=== PATIENT | female | born 1935 | race Caucasian/White ===

== ENCOUNTER 2017-08-09 09:53 | Inpatient (IN) | payer MEDICARE, OTHER ==
[~2017-08-09] VITALS: Ht 157.5 cm; Wt 97.0 kg
[2017-08-09] MEDS ORDERED: ASPIRIN 81 MG TAB PO STA (10:01)
[2017-08-09] MEDS ORDERED: NITROGLYCERIN 2% 1 GM OINT PKT TD STA (10:01)
[2017-08-09] MEDS ORDERED: NITROGLYCERIN (SL) 0.4 MG TAB SL PRN (10:30)
[2017-08-09] MEDS ORDERED: FUROSEMIDE 40 MG INJ IV ONE (10:30)
[2017-08-09 10:39] LABS: BASOPHILS % 0.5 % (0.0-2.0); EOSINOPHILS # 0.2 10^3/ul (0.0-0.5); EOSINOPHILS % 3.8 % (0.0-7.0); HEMATOCRIT 32.1 % (37.0-47.0); LYMPHOCYTES # 0.8 10^3/ul (0.8-2.9); LYMPHOCYTES % 12.7 % (15.0-51.0); MEAN CORPUSCULAR HEMOGLOBIN 27.4 pg (29.0-33.0); MEAN CORPUSCULAR HGB CONC 31.2 g/dl (32.0-37.0); MEAN CORPUSCULAR VOLUME 87.9 fl (82.0-101.0); MEAN PLATELET VOLUME 12.1 fl (7.4-10.4); MONOCYTE # 0.2 10^3/ul (0.3-0.9); NEUTROPHIL # 4.7 10^3/ul (1.6-7.5); NEUTROPHILS % 78.5 % (39.0-77.0); PLATELET COUNT 156 10^3/UL (140-415); RED BLOOD COUNT 3.65 10^6/ul (4.20-5.40); RED CELL DISTRIBUTION WIDTH 13.1 % (11.5-14.5)
[2017-08-09] MEDS ORDERED: VALS80TA2 PO (10:44)
[2017-08-09] MEDS ORDERED: METO-335 PO (10:44)
[2017-08-09] MEDS ORDERED: FURO40TA4 PO (10:46)
[2017-08-09] MEDS ORDERED: METO-448 PO (10:46)
[2017-08-09] MEDS ORDERED: COMBIG5 BOTH EYES (10:47)
[2017-08-09] MEDS ORDERED: SERT50TA PO (10:48)
[2017-08-09] MEDS ORDERED: HYDR25TA6 PO (10:48)
[2017-08-09] MEDS ORDERED: LORA0.5T PO (10:49)
[2017-08-09] MEDS ORDERED: LATA2.5D2 BOTH EYES (10:49)
--- NOTE | 2017-08-09 10:53 | RADRPT ---
PROCEDURE: XR Chest. CLINICAL INDICATION: Chest pain TECHNIQUE: Single portable view of the chest was obtained COMPARISON: No priors for comparison FINDINGS: The trachea is midline. The cardiac silhouette and vascularity are prominent. There are bilateral pe rihilar and interstitial opacities. The costophrenic angles are sharp. IMPRESSION: 1. Cardiomegaly and mild central pulmonary congestion. Bilateral interstitial opacities, probably mi ld edema RPTAT: AAPP Physician Yue Date Time Electronically viewed and signed by Physician Yue on 08/09/2017 10:52 JL/
[2017-08-09 10:57] LABS: CALCIUM 9.1 mg/dl (8.4-10.2); CREATININE 2.07 mg/dl (0.44-1.00); POTASSIUM 5.7 mmol/L (3.5-5.1)
[2017-08-09 11:09] LABS: TROPONIN-I 0.037 ng/ml (0.00-0.12)
[2017-08-09] MEDS ORDERED: ACETAMINOPHEN 325 MG TAB PO PRN (13:00)
[2017-08-09] MEDS ORDERED: ONDANSETRON 4 MG INJ IV PRN (13:00)
--- NOTE | 2017-08-09 13:35 | ERD ---
ER Documentation Chief Complaint Chief Complaint BIB R102, SOB X 3 DAYS. O2 SAT 70'S ON RA UPON ARRIVAL. HPI She is an 82-year-old female with coronary disease, CHF, and hypertension who presents with shortness of breath. She has had shortness of breath for the past 3 days. She came from home. A [place] tassel maker was used. She was placed on CPAP by paramedics. Her blood pressure was elevated. She denies pain. The symptoms come and go. The patient's family thinks it is a heart issue. The patient was brought in by ambulance. The oxygen saturation was 70% . Patient's primary doctor is Dr. Calix. ROS All systems reviewed and are negative except as per history of present illness. Medications Home Meds Reported Medications Latanoprost (Latanoprost) 2.5 Ml Drops, 1 DROP BOTH EYES QHS, #1 BOTTLE 08/09/17 Lorazepam* (Lorazepam*) 0.5 Mg Tablet, 0.5 MG PO TID Y for ANXIETY, TAB 08/09/17 Sertraline Hcl* (Zoloft*) 50 Mg Tablet, 50 MG PO DAILY, #30 TAB 08/09/17 Hydrochlorothiazide* (Hydrochlorothiazide*) 25 Mg Tab, 25 MG PO DAILY, #30 TAB 08/09/17 Brimonidine/Timolol* (Combigan*) 5 Ml Drops, 1 DROP BOTH EYES BID, BOTTLE 08/09/17 Metoprolol Tartrate* (Lopressor*) 25 Mg Tab, 12.5 MG PO BID, #60 TAB 08/09/17 Furosemide* (Furosemide*) 40 Mg Tablet, 40 MG PO DAILY, TAB 08/09/17 Valsartan* (Diovan*) 80 Mg Tablet, 80 MG PO DAILY, TAB 08/09/17 Discontinued Reported Medications Metoprolol Succinate* (Toprol XL*) 25 Mg Tab.sr.24h, 25 MG PO DAILY, #30 TAB 08/09/17 Allergies Allergies: Coded Allergies: No Known Allergy (Unverified , 08/09/17) PMhx/Soc Positive for coronary disease and hypertension Medical and Surgical Hx: Unable to obtain Smoking Status: Unknown if ever smoked FmHx Family History: No diabetes Physical Exam Vitals Vital Signs Date Time Temp Pulse Resp B/P Pulse Ox O2 Delivery O2 Flow Rate FiO2 08/09/17 12:16 62 16 129/66 100 Room Air 08/09/17 11:30 61 100 50 08/09/17 10:00 81 100 100 08/09/17 09:55 97.4 60 28 159/88 98 Physical Exam Const: Distress Head: Atraumatic Eyes: Normal Conjunctiva ENT: Normal External Ears, Nose and Mouth. Neck: Full range of motion..~ No meningismus. Resp: Decreased breath sounds bilaterally Cardio: Regular rate and rhythm, no murmurs Abd: Soft, non tender, non distended. Normal bowel sounds Skin: No petechiae or rashes Back: No midline or flank tenderness Ext: No cyanosis, or edema Neur: Awake and alert Psych: Normal Mood and Affect Result Diagram: 08/09/17 1025 08/09/17 1025 Results 24 hrs Laboratory Tests Test 08/09/17 10:25 White Blood Count 6.010^3/ul Red Blood Count 3.6510^6/ul Hemoglobin 10.0g/dl Hematocrit 32.1% Mean Corpuscular Volume 87.9fl Mean Corpuscular Hemoglobin 27.4pg Mean Corpuscular Hemoglobin Concent 31.2g/dl Red Cell Distribution Width 13.1% Platelet Count 48408^3/UL Mean Platelet Volume 12.1fl Neutrophils % 78.5% Lymphocytes % 12.7% Monocytes % 4.0% Eosinophils % 3.8% Basophils % 0.5% Nucleated Red Blood Cells % 0.0/100WBC Neutrophils # 4.710^3/ul Lymphocytes # 0.810^3/ul Monocytes # 0.210^3/ul Eosinophils # 0.210^3/ul Basophils # 0.010^3/ul Nucleated Red Blood Cells # 0.010^3/ul Sodium Level 142mmol/L Potassium Level 5.7mmol/L Chloride Level 103mmol/L Carbon Dioxide Level 30mmol/L Anion Gap 15 Blood Urea Nitrogen 34mg/dl Creatinine 2.07mg/dl Glucose Level 129mg/dl Calcium Level 9.1mg/dl Troponin I 0.037ng/ml Current Medications Medications (Trade) Dose Ordered Sig/Jaylin Route PRN Reason Start Time Stop Time Status Last Admin Dose Admin Aspirin (Aspirin) 162 mg ONCE STAT PO 08/09/17 10:01 08/09/17 10:03 DC 08/09/17 10:44 Nitroglycerin (Nitroglycerin 2% Oint) 1 inch ONCE STAT TD 08/09/17 10:01 08/09/17 10:03 DC 08/09/17 10:44 Nitroglycerin (Nitroglycerin (Sl Tab) 0.4 Mg) 1 tab Q5M UP TO 3 DOSES PRN SL CHEST PAIN 08/09/17 10:30 Furosemide (Lasix) 40 mg ONCE ONCE IV 08/09/17 10:30 08/09/17 10:31 DC 08/09/17 10:44 Ondansetron HCl (Zofran Inj) 4 mg ER BRIDGE PRN IV NAUSEA AND/OR VOMITING 08/09/17 13:00 08/10/17 12:59 Acetaminophen (Tylenol Tab) 650 mg ER BRIDGE PRN PO MILD PAIN/FEVER 08/09/17 13:00 08/10/17 12:59 Procedures/MDM Chest x-ray shows pulmonary edema per radiology. EKG read by me: Rate/Rhythm: Regular rate and rhythm at a rate of 71 Intervals: Normal Impression: No evidence of ischemia or arrhythmia Patient is an 82-year-old female presents with shortness of breath. I believe she has acute congestive heart failure exacerbation with respiratory failure. The patient required BiPAP therapy upon arrival. She was given aspirin, nitroglycerin, and Lasix. She will be admitted to a telemetry bed under the care of Dr. Calix. She improved and was able to be weaned to a nasal cannula. I doubt pneumonia or pneumothorax. I doubt pulmonary embolism. The patient will be admitted to the care of Dr. Calix her primary doctor. Critical Care: Time: 35 minutes excluding all billable procedures. Treatments/Evaluations: Close monitoring and treatment of unstable vital signs, cardiorespiratory, and neurologic status, while maintaining tight balance of fluid, respiratory, and cardiac interventions. Departure Diagnosis: Primary Impression: Respiratory failure Chronicity: acute Respiratory failure complication: hypoxia Qualified Code : J96.01 - Acute respiratory failure with hypoxia Additional Impressions: Shortness of breath CHF (congestive heart failure) Congestive heart failure type: unspecified congestive heart failure type Congestive heart failure chronicity: acute Qualified Code: I50.9 - Acute congestive heart failure, unspecified congestive heart failure type Condition: CLAUDIA Caballero MD Aug 09, 2017 13:35
[2017-08-09 17:24] LABS: CK-MB 0.54 ng/ml (0.0-2.4); TROPONIN-I 0.053 ng/ml (0.00-0.12)
[2017-08-09 19:11] VITALS: PULSE 71
[2017-08-09 20:00] VITALS: PULSE 74
[2017-08-09 20:24] VITALS: Ht 157.5 cm; Wt 97.0 kg
[2017-08-09 20:26] VITALS: BP 114/57; RESP 18
[2017-08-09] MEDS: METOPROLOL 25 MG TAB PO SCH (21:30)
[2017-08-09] MEDS ORDERED: ACETAMINOPHEN 500 MG TAB PO PRN (21:30)
[2017-08-09] MEDS: AMLODIPINE 2.5 MG TAB PO SCH (21:30)
[2017-08-09] MEDS ORDERED: LORAZEPAM 0.5 MG TAB PO PRN (21:30)
[2017-08-09 21:31] LABS: MAGNESIUM 2.2 mg/dl (1.7-2.5)
[2017-08-09] MEDS: ENOXAPARIN 100 MG/ML SYG SC SCH (21:49)
--- NOTE | 2017-08-09 21:49 | HP ---
Date/Time of Note Date/Time of Note DATE: 08/09/17 TIME: 21:30 Assessment/Plan VTE Prophylaxis VTE Prophylaxis Intervention: ambulation, anti-embolic stocking Lines/Catheters IV Catheter Type (from Nrsg): Saline Lock Assessment/Plan Assessment/Plan 1.IHD angina r/o mi 2.Severe sob with sensation of suffocation with 02 sat 70"s- r/o pe- add d-dimer to the tests and venose Doppler. 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 Progressive worsening of shortness of breath for the past 3 days. Today she was suffocating literally and her daughter in law called to son who called to paramedics.They placed her on CPAP. Her blood pressure was 150-160 mm hg systolic. She is ahving pressure sensation of the left breast area with pressure sensation to the neck area too. The symptoms come and go. The oxygen saturation was registered 70% according to er note. She had a HX of coronary disease, CHF , and hypertension. ROS Subjective hx not possible: pt critical, pt critical status Constitutional: diaphoresis, disoriented, fatigue, nausea, poor po, weight change, No chills, No febrile, No improved, No no complaints, No other Eyes: visual change (left blindness with decreased vision to right eye. ), No discharge, No no complaints, No other, No pain, No redness ENT: congestion, sore throat, No bleeding, No discharge, No dysphagia, No no complaints, No other, No pain Cardiovascular: chest pain, lightheadedness, orthopenea, palpitations, paroxysmal nocturnal dyspnea (severe with the sensation of soffocation.), No edema, No no complaints, No other Gastrointestinal: constipation, decreased appetite, flatus, nausea, pain, passing stool, No blood, No diarrhea, No no complaints, No other, No vomiting Genitourinary: flank pain, No bleeding, No discharge, No dysuria, No hematuria, No no complaints, No other Musculoskeletal: back pain, bone/joint pain, neck pain, No no complaints, No other, No restricted range of motion, No swelling Skin: bruising, pruritis, No erythema, No laceration, No no complaints, No other, No rash, No skin lesions Neurologic: confusion, dizziness, headache, No focal-weakness, No no complaints, No other, No seizure, No syncope Endocrine: polyuria (after diuretics.) Lymphatic: No adenopathy, No lymphadema, No no complaints, No other, No tender nodes Psychological: anxiety, confusion, depression, No nl mood/affect, No no complaints, No other, No suicidal Immunologic: No immunodeficiency, No no complaints, No other, No pruritis, No rhinitis, No urticaria PMH/Family/Social Past Medical History Medical History: angina, congestive heart failure, coronary artery disease, diabetes, diverticulitis, GERD, high cholesterol, hypertension, urinary tract infection Past Surgical History Past Surgical Hx: endoscopy, other (Extrauterine with s/p right tubo-ovarian removal 30 years ago.) Social History Alcohol Use: none Smoking Status: Never smoker Drug Use: none Exam/Review of Systems Vital Signs Vitals Vital Signs Date Time Temp Pulse Resp B/P Pulse Ox O2 Delivery O2 Flow Rate FiO2 08/09/17 20:26 98.2 58 18 114/57 92 08/09/17 17:54 Nasal Cannula 2.0 08/09/17 11:30 50 Exam Constitutional: alert, distress, frail, oriented, well developed, No non-verbal, No other Psych: anxiety, depression, No confusion, No nl mood/affect, No no complaints, No other, No suicidal Head: atraumatic, normocephalic, No hematomas, No lacerations, No other Eyes: EOMI, PERRL (left pupil is smaller.), fundi, disc, nl lids, other ( left almost total blindness.), No icteric, No nl conjunctiva, No nl sclera ENMT: nl external ears & nose, nl lips & teeth (dentures.) Neck: bruits, jvd, nuchal rigidity, No masses, No non-tender, No other, No supple, No thyromegaly Respiratory: congested cough, diminished breath sounds, labored breathing, normal air movement, No clear to auscultation, No crackles/rales, No intercostal retraction, No other, No respirations, No tactile fremitus, No wheezing Cardiovascular: bruits, jugular venous distention (JVD), regular rate and rhythm, systolic murmur, No S3, No S4, No diastolic murmur, No edema, No gallop, No irregular rhythm, No murmurs/extra sounds, No nl pulses, No other, No rub Gastrointestinal: bowel sounds, non-tender, soft, surgical scars (lower abdomen.) Genitourinary - Female: CVA tenderness, No CMT, No nl adnexae, No nl external genitalia, No other, No uterus Musculoskeletal: joint tenderness, muscle tone, muscle weakness Extremities: normal pulses, No calf tenderness, No clubbing, No cyanosis, No edema, No other, No palpable cord, No pitting pedal edema, No tenderness Neurological: [employer] II-XII intact (decreased hearing.), nl mental status, nl speech, numbness Skin: No diaphoresis, No ecchymosis, No laceration, No nl turgor, No other, No puncture, No rash or lesions Lymph: No enlarged, No nl lymph nodes, No nontender, No other Labs Result Diagram: 08/09/17 1025 08/09/17 1025 Medications Medications Current Medications Pantoprazole (Protonix Tab) 40 mg DAILY@06 PO ; Start 08/10/17 at 06:00 Atorvastatin Calcium (Lipitor) 20 mg HS PO ; Start 08/10/17 at 21:00 Aspirin (Halfprin) 81 mg DAILY PO ; Start 08/10/17 at 09:00 Acetaminophen (Tylenol Tab) 500 mg Q6H PRN PO PAIN AND OR ELEVATED TEMP; Start 08/09/17 at 21:30 Lorazepam (Ativan) 0.5 mg Q6H PRN PO ANXIETY; Start 08/09/17 at 21:30 Metoprolol Tartrate (Lopressor) 12.5 mg BID PO ; Start 08/09/17 at 21:30 Amlodipine Besylate (Norvasc) 2.5 mg Q12 PO ; Start 08/09/17 at 21:30 Enoxaparin Sodium (Lovenox) 95 mg Q24H SC ; Start 08/09/17 at 21:30 DEWAYNE ADAIR MD Aug 09, 2017 21:40
[2017-08-09 22:00] LABS: IRON 53 ug/dl (35-150)
[2017-08-09 22:03] LABS: THYROID STIMULATING HORMONE 4.21 MIU/L (0.465-4.680)
[2017-08-09 22:09] LABS: TOTAL IRON BINDING CAPACITY 380 ug/dl (241-421)
[2017-08-09] MEDS ORDERED: NA POLYST SULFON 15 GM/60 ML BTL PO ONE (22:30)
[2017-08-09] MEDS: BRIMONIDINE 0.2%-TIMOLOL 0.5% 5ML OPH BOTH EYES SCH (23:02)
[2017-08-09] MEDS: LATANOPROST 0.005% 2.5 ML OPH BOTH EYES SCH (23:16)
[2017-08-10] VITALS (12 sets, daily range): BP systolic 93–133; BP diastolic 51–69; PULSE 61–82; RESP 16–20
[2017-08-10 00:17] LABS: D-DIMER 5441.39 ng/ml (<460)
--- NOTE | 2017-08-10 02:03 | RADRPT ---
PROCEDURE: Ultrasound examination of bilateral lower extremities veins with Doppler. CLINICAL INDICATION: Leg pain and swelling, hypoxia. TECHNIQUE: Multiple sonographic images of bilateral lower extremity venous systems were performed with mcmahan scale and color Doppler. COMPARISON: None. FINDINGS: Bilateral common femoral, superficial femoral and popliteal veins demonstrate normal color flow, wav eforms, compression and response to augmentation. There is no evidence of deep venous thrombosis. IMPRESSION: No evidence of deep venous thrombosis within bilateral lower extremities. .El Barraza MD, Date Time Electronically viewed and signed by .El Barraza MD, on 08/10/2017 02:02 .T/
[2017-08-10] MEDS: PANTOPRAZOLE (EC) 40 MG TAB PO SCH (05:30)
[2017-08-10] MEDS ORDERED: FUROSEMIDE 20 MG INJ IV ONE (08:00)
--- NOTE | 2017-08-10 08:03 | CONS ---
Date/Time of Note Date/Time of Note DATE: 08/10/17 TIME: 07:53 Assessment/Plan Assessment/Plan Chief Complaint/Hosp Course Acute respiratory failure: Due to flash pulmonary edema in setting of valvular disease (significant or MR or both by exam). Now better after diuresis and off BiPAP Acute diastolic/valvular heart failure: Episode appears to be more of a flash pulmonary edema than a subacute decompensation. Now significantly better and only mild residual CHF by exam. Acute vs chronic renal failure: unknown baseline Cr DM HTN -check echo to confirm valvular pathology -lasix 20mg IV x1 now and reassess -d/c NTG in setting of likely significant -continue ASA, lipitor -continue metoprolol -continue to hold valsartan with renal failure -further recs depending on echo findings and pt's wishes Problems: Consultation Date/Type/Reason Admit Date/Time Aug 09, 2017 at 12:57 Date of Consultation: Aug 10, 2017 Type of Consultation: Cardiology Reason for Consultation respiratory failure Referring Provider: DEWAYNE ADAIR MD Hx of Present Illness 82 yo F with a h/o CHF, valvular disease, HTN, DM, ?CKD, who presented with dyspnea and was found to have acute respiratory failure requiring BiPAP secondary to heart failure. She notes that yesterday am she woke up with SOB which progressively worsened to a point where she had her grandson call paramedics. Per ED notes her O2 was 70% on RA. She was placed on BiPAP and given lasix. She improved and was quickly weaned to nasal cannula. She notes that this happened 4 months ago as well and she was diagnosed with a valve problem one year ago and has been told she needs surgery though she refuses. She is adamant that she will not have surgery under any circumstance and that she has loved long enough and prepared for the consequences. Currently no SOB. Comfortable. No h/o OH or CAD per pt. per hPI Past Medical History per HPI Medical History: angina, congestive heart failure, coronary artery disease, diabetes, diverticulitis, GERD, high cholesterol, hypertension, urinary tract infection Past Surgical History Past Surgical Hx: endoscopy, other (Extrauterine with s/p right tubo-ovarian removal 30 years ago.) Social History Alcohol Use: none Smoking Status: Never smoker Drug Use: none Exam/Review of Systems Vital Signs Vitals Vital Signs Date Time Temp Pulse Resp B/P Pulse Ox O2 Delivery O2 Flow Rate FiO2 08/10/17 07:40 97.9 81 18 119/58 95 08/09/17 20:00 Nasal Cannula 2.0 08/09/17 11:30 50 Intake and Output 08/09/17 08/09/17 08/10/17 15:00 23:00 07:00 Intake Total 300 ml Balance 300 ml Exam Constitutional: alert, oriented Psych: nl mood/affect, no complaints Head: atraumatic, normocephalic Eyes: nl conjunctiva ENMT: nl external ears & nose Neck: jvd (8cm) Respiratory: crackles/rales (mild), No clear to auscultation Cardiovascular: edema (trace), regular rate and rhythm, systolic murmur (3/6 late peaking WALT at LUSB, 3/6 HSM at apex ) Gastrointestinal: non-tender, soft Neurological: nl mental status, nl speech Skin: No rash or lesions Results EKG: sinus arrhythmia, no ST changes Result Diagram: 08/09/17 1025 08/09/17 1025 Results 24 hrs Laboratory Tests Test 08/09/17 10:25 08/09/17 16:24 08/09/17 22:36 White Blood Count 6.0 Red Blood Count 3.65 L Hemoglobin 10.0 L Hematocrit 32.1 L Mean Corpuscular Volume 87.9 Mean Corpuscular Hemoglobin 27.4 L Mean Corpuscular Hemoglobin Concent 31.2 L Red Cell Distribution Width 13.1 Platelet Count 156 Mean Platelet Volume 12.1 H Neutrophils % 78.5 H Lymphocytes % 12.7 L Monocytes % 4.0 Eosinophils % 3.8 Basophils % 0.5 Nucleated Red Blood Cells % 0.0 Neutrophils # 4.7 Lymphocytes # 0.8 Monocytes # 0.2 L Eosinophils # 0.2 Basophils # 0.0 Nucleated Red Blood Cells # 0.0 Sodium Level 142 Potassium Level 5.7 H Chloride Level 103 Carbon Dioxide Level 30 Anion Gap 15 Blood Urea Nitrogen 34 H Creatinine 2.07 H Glucose Level 129 Calcium Level 9.1 Magnesium Level 2.2 Iron Level 53 Total Iron Binding Capacity 380 Percent Iron Saturation 14 L Troponin I 0.037 0.053 0.063 Thyroid Stimulating Hormone (TSH) 4.210 Creatine Kinase 35 Creatine Kinase Index 1.5 Creatinine Kinase MB (Mass) 0.54 D-Dimer 5441.39 H D-Dimer Comment Medications Medications Current Medications Pantoprazole (Protonix Tab) 40 mg DAILY@06 PO Last administered on 08/10/17 05:30; Admin Dose 40 MG; Start 08/10/17 at 06:00 Atorvastatin Calcium (Lipitor) 20 mg HS PO ; Start 08/10/17 at 21:00 Aspirin (Halfprin) 81 mg DAILY PO ; Start 08/10/17 at 09:00 Acetaminophen (Tylenol Tab) 500 mg Q6H PRN PO PAIN AND OR ELEVATED TEMP; Start 08/09/17 at 21:30 Lorazepam (Ativan) 0.5 mg Q6H PRN PO ANXIETY; Start 08/09/17 at 21:30 Metoprolol Tartrate (Lopressor) 12.5 mg BID PO ; Start 08/09/17 at 21:30 Amlodipine Besylate (Norvasc) 2.5 mg Q12 PO ; Start 08/09/17 at 21:30 Enoxaparin Sodium (Lovenox) 95 mg Q24H SC Last administered on 08/09/17 21:49 ; Admin Dose 95 MG; Start 08/09/17 at 21:30 Brimonidine/ Timolol (Combigan Oph) 1 drop BID BOTH EYES Last administered on 08/09/17 23:02; Admin Dose 1 DROP; Start 08/09/17 at 22:30 Latanoprost (Xalatan) 1 drop HS BOTH EYES Last administered on 08/09/17 23:16 ; Admin Dose 1 DROP; Start 08/09/17 at 23:00 MYA RAMON Aug 10, 2017 08:03
[2017-08-10 08:07] LABS: CHOL/HDL RATIO 5.2 RATIO
[2017-08-10 08:17] LABS: TROPONIN-I 0.055 ng/ml (0.00-0.12)
--- NOTE | 2017-08-10 09:02 | PN ---
Date/Time of Note Date/Time of Note DATE: 08/10/17 TIME: 08:58 Assessment/Plan VTE Prophylaxis VTE Prophylaxis Intervention: ambulation, anti-embolic stocking VTE Contraindication Reason: peripheral vascular disease Lines/Catheters IV Catheter Type (from Nrsg): [place] [employer] line still needed: No Urinary Cath still in place: No Reason Cath still needed: urinary retention (incontinence.) Assessment/Plan Assessment/Plan 1.IHD angina r/o mi 2.Severe sob with sensation of suffocation with 02 sat 70"s- r/o pe- add d-dimer to the tests and venose Doppler. 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 Subjective 24 Hr Interval Summary Free Text/Dictation Sry mouth. No cp. Still has pressure sensation mainly over the left breast and neck areas. Unable to hold a urine. Incontinence. Constitutional: disoriented (in time.), improved, poor po, requiring O2, No chills, No diaphoresis, No febrile, No no complaints, No other, No requiring IVF Eyes: visual change, No discharge, No no complaints, No other, No pain, No redness ENT: No bleeding, No congestion, No discharge, No dysphagia, No no complaints, No other, No pain, No sore throat Respiratory: cough, shortness of breath, No no complaints, No other, No pain, No pleuritic pain, No sputum, No wheezing Cardiovascular: chest pain, orthopenea, palpitations, paroxysmal nocturnal dyspnea (less intense than yesterday.), No edema, No lightheadedness, No no complaints, No other Gastrointestinal: constipation, decreased appetite, flatus, nausea, passing stool, No blood, No diarrhea, No no complaints, No other, No pain, No vomiting Genitourinary: flank pain, No bleeding, No discharge, No dysuria, No hematuria, No no complaints, No other Musculoskeletal: back pain, bone/joint pain, neck pain, No no complaints, No other, No restricted range of motion, No swelling Skin: No bruising, No erythema, No laceration, No no complaints, No other, No pruritis, No rash, No skin lesions Neurologic: dizziness, headache, No confusion, No focal-weakness, No no complaints, No other, No seizure, No syncope Endocrine: No dry skin, No no complaints, No other, No polydypsia, No polyuria , No temp intolerance Lymphatic: No adenopathy, No lymphadema, No no complaints, No other, No tender nodes Psychological: anxiety, depression Exam/Review of Systems Vital Signs Vitals Vital Signs Date Time Temp Pulse Resp B/P Pulse Ox O2 Delivery O2 Flow Rate FiO2 08/10/17 08:12 78 08/10/17 07:40 97.9 18 119/58 95 08/09/17 20:00 Nasal Cannula 2.0 08/09/17 11:30 50 Intake and Output 08/09/17 08/09/17 08/10/17 15:00 23:00 07:00 Intake Total 300 ml Balance 300 ml Exam Constitutional: alert, distress, frail, oriented, No non-verbal, No obese, No other, No well developed Psych: anxiety, confusion, depression, No nl mood/affect, No no complaints, No other, No suicidal Head: atraumatic, No hematomas, No lacerations, No normocephalic, No other Eyes: EOMI, nl lids, other (left blindness.) ENMT: nl lips & teeth, tympanic membranes Neck: bruits, jvd, nuchal rigidity, No masses, No non-tender, No other, No supple, No thyromegaly Respiratory: clear to auscultation, congested cough, diminished breath sounds, normal air movement, No crackles/rales, No intercostal retraction, No labored breathing, No other , No respirations, No tactile fremitus, No wheezing Cardiovascular: bruits, systolic murmur, No S3, No S4, No diastolic murmur, No edema, No gallop, No irregular rhythm, No jugular venous distention (JVD), No murmurs/extra sounds, No nl pulses, No other, No regular rate and rhythm, No rub Gastrointestinal: bowel sounds, nl liver, spleen, No ascites, No distended, No firm, No hepatomegaly, No mass, No non-tender, No other, No rebound or guarding, No soft, No splenomegaly, No surgical scars, No tender Genitourinary - Female: No CMT, No CVA tenderness, No nl adnexae, No nl external genitalia, No other, No uterus Musculoskeletal: joint tenderness, muscle tone, muscle weakness, No nl extremities to inspection, No nl gait and stance, No other, No range of motion, No spine non-tender, No swelling Extremities: No calf tenderness, No clubbing, No cyanosis, No edema, No normal pulses, No other, No palpable cord, No pitting pedal edema, No tenderness Results Result Diagram: 08/09/17 1025 08/09/17 1025 Results 24 hrs Laboratory Tests Test 08/09/17 10:25 08/09/17 16:24 08/09/17 22:36 08/10/17 06:33 White Blood Count 6.0 Red Blood Count 3.65 L Hemoglobin 10.0 L Hematocrit 32.1 L Mean Corpuscular Volume 87.9 Mean Corpuscular Hemoglobin 27.4 L Mean Corpuscular Hemoglobin Concent 31.2 L Red Cell Distribution Width 13.1 Platelet Count 156 Mean Platelet Volume 12.1 H Neutrophils % 78.5 H Lymphocytes % 12.7 L Monocytes % 4.0 Eosinophils % 3.8 Basophils % 0.5 Nucleated Red Blood Cells % 0.0 Neutrophils # 4.7 Lymphocytes # 0.8 Monocytes # 0.2 L Eosinophils # 0.2 Basophils # 0.0 Nucleated Red Blood Cells # 0.0 Sodium Level 142 Potassium Level 5.7 H Chloride Level 103 Carbon Dioxide Level 30 Anion Gap 15 Blood Urea Nitrogen 34 H Creatinine 2.07 H Glucose Level 129 Calcium Level 9.1 Magnesium Level 2.2 Iron Level 53 Total Iron Binding Capacity 380 Percent Iron Saturation 14 L Troponin I 0.037 0.053 0.063 0.055 Thyroid Stimulating Hormone (TSH) 4.210 Creatine Kinase 35 Creatine Kinase Index 1.5 Creatinine Kinase MB (Mass) 0.54 D-Dimer 5441.39 H D-Dimer Comment Hemoglobin A1c 5.5 Triglycerides Level 140 Cholesterol Level 232 H LDL Cholesterol, Calculated 160 HDL Cholesterol 44 Cholesterol/HDL Ratio 5.2 Medications Medications Current Medications Pantoprazole (Protonix Tab) 40 mg DAILY@06 PO Last administered on 08/10/17t 05:30; Admin Dose 40 MG; Start 08/10/17 at 06:00 Atorvastatin Calcium (Lipitor) 20 mg HS PO ; Start 08/10/17 at 21:00 Aspirin (Halfprin) 81 mg DAILY PO ; Start 08/10/17 at 09:00 Acetaminophen (Tylenol Tab) 500 mg Q6H PRN PO PAIN AND OR ELEVATED TEMP; Start 08/09/17 at 21:30 Lorazepam (Ativan) 0.5 mg Q6H PRN PO ANXIETY; Start 08/09/17 at 21:30 Metoprolol Tartrate (Lopressor) 12.5 mg BID PO ; Start 08/09/17 at 21:30 Amlodipine Besylate (Norvasc) 2.5 mg Q12 PO ; Start 08/09/17 at 21:30 Enoxaparin Sodium (Lovenox) 95 mg Q24H SC Last administered on 08/09/17 21:49 ; Admin Dose 95 MG; Start 08/09/17 at 21:30 Brimonidine/ Timolol (Combigan Oph) 1 drop BID BOTH EYES Last administered on 08/09/17 23:02; Admin Dose 1 DROP; Start 08/09/17 at 22:30 Latanoprost (Xalatan) 1 drop HS BOTH EYES Last administered on 08/09/17 23:16 ; Admin Dose 1 DROP; Start 08/09/17 at 23:00 DEWAYNE ADAIR MD Aug 10, 2017 09:02
[2017-08-10] MEDS: AMLODIPINE 2.5 MG TAB PO SCH ×2 (09:09→20:42)
[2017-08-10] MEDS: METOPROLOL 25 MG TAB PO SCH ×2 (09:09→20:41)
[2017-08-10] MEDS: ASPIRIN (EC) 81 MG TAB PO SCH (09:09)
[2017-08-10] MEDS: BRIMONIDINE 0.2%-TIMOLOL 0.5% 5ML OPH BOTH EYES SCH ×2 (09:10→20:34)
--- NOTE | 2017-08-10 20:19 | CONS ---
Date/Time of Note Date/Time of Note DATE: 08/10/17 TIME: : Consultation Date/Type/Reason Admit Date/Time Aug 09, 2017 at 12:57 Type of Consultation: HEMEONC Reason for Consultation ANEMIA Referring Provider: DEWAYNE ADAIR MD Past Medical History Medical History: angina, congestive heart failure, coronary artery disease, diabetes, diverticulitis, GERD, high cholesterol, hypertension, urinary tract infection Past Surgical History Past Surgical Hx: endoscopy, other (Extrauterine with s/p right tubo-ovarian removal 30 years ago.) Social History Alcohol Use: none Smoking Status: Never smoker Drug Use: none Exam/Review of Systems Vital Signs Vitals Vital Signs Date Time Temp Pulse Resp B/P Pulse Ox O2 Delivery O2 Flow Rate FiO2 08/10/17 20:07 61 08/10/17 19:50 2.0 08/10/17 16:00 98.1 16 95/52 97 08/09/17 20:00 Nasal Cannula 08/09/17 11:30 50 Intake and Output 08/09/17 08/09/17 08/10/17 15:00 23:00 07:00 Intake Total 300 ml Balance 300 ml Results Result Diagram: 08/09/17 1025 08/09/17 1025 Results 24 hrs Laboratory Tests Test 08/09/17 22:36 08/10/17 06:33 08/10/17 11:34 D-Dimer 5441.39 H D-Dimer Comment Troponin I 0.063 0.055 0.054 Hemoglobin A1c 5.5 Triglycerides Level 140 Cholesterol Level 232 H LDL Cholesterol, Calculated 160 HDL Cholesterol 44 Cholesterol/HDL Ratio 5.2 Medications Medications Current Medications Pantoprazole (Protonix Tab) 40 mg DAILY@06 PO Last administered on 08/10/17 05:30; Admin Dose 40 MG; Start 08/10/17 at 06:00 Atorvastatin Calcium (Lipitor) 20 mg HS PO ; Start 08/10/17 at 21:00 Aspirin (Halfprin) 81 mg DAILY PO Last administered on 08/10/17 09:09; Admin Dose 81 MG; Start 08/10/17 at 09:00 Acetaminophen (Tylenol Tab) 500 mg Q6H PRN PO PAIN AND OR ELEVATED TEMP Last administered on 08/10/17 09:12; Admin Dose 500 MG; Start 08/09/17 at 21:30 Lorazepam (Ativan) 0.5 mg Q6H PRN PO ANXIETY; Start 08/09/17 at 21:30 Metoprolol Tartrate (Lopressor) 12.5 mg BID PO Last administered on 08/10/17 09:09; Admin Dose 12.5 MG; Start 08/09/17 at 21:30 Amlodipine Besylate (Norvasc) 2.5 mg Q12 PO Last administered on 08/10/17 09: 09; Admin Dose 2.5 MG; Start 08/09/17 at 21:30 Enoxaparin Sodium (Lovenox) 95 mg Q24H SC Last administered on 08/09/17 21:49 ; Admin Dose 95 MG; Start 08/09/17 at 21:30 Brimonidine/ Timolol (Combigan Oph) 1 drop BID BOTH EYES Last administered on 08/10/17 09:10; Admin Dose 1 DROP; Start 08/09/17 at 22:30 Latanoprost (Xalatan) 1 drop HS BOTH EYES Last administered on 08/09/17 23:16 ; Admin Dose 1 DROP; Start 08/09/17 at 23:00 ANIVAL PEDRAZA MD Aug 10, 2017 20:19
--- NOTE | 2017-08-10 20:19 | CONS ---
Date/Time of Note Date/Time of Note DATE: 08/10/17 TIME: 20:18 Consultation Date/Type/Reason Admit Date/Time Aug 09, 2017 at 12:57 Initial Consult Date 08/10/17 Type of Consultation: [facility] Referring Provider: DEWAYNE ADAIR MD Exam/Review of Systems Vital Signs Vitals Vital Signs Date Time Temp Pulse Resp B/P Pulse Ox O2 Delivery O2 Flow Rate FiO2 08/10/17 20:07 61 08/10/17 19:50 2.0 08/10/17 16:00 98.1 16 95/52 97 08/09/17 20:00 Nasal Cannula 08/09/17 11:30 50 Intake and Output 08/09/17 08/09/17 08/10/17 15:00 23:00 07:00 Intake Total 300 ml Balance 300 ml Results Result Diagram: 08/09/17 1025 08/09/17 1025 Results 24 hrs Laboratory Tests Test 08/09/17 22:36 08/10/17 06:33 08/10/17 11:34 D-Dimer 5441.39 H D-Dimer Comment Troponin I 0.063 0.055 0.054 Hemoglobin A1c 5.5 Triglycerides Level 140 Cholesterol Level 232 H LDL Cholesterol, Calculated 160 HDL Cholesterol 44 Cholesterol/HDL Ratio 5.2 Medications Medications Current Medications Pantoprazole (Protonix Tab) 40 mg DAILY@06 PO Last administered on 08/10/17 05:30; Admin Dose 40 MG; Start 08/10/17 at 06:00 Atorvastatin Calcium (Lipitor) 20 mg HS PO ; Start 08/10/17 at 21:00 Aspirin (Halfprin) 81 mg DAILY PO Last administered on 08/10/17 09:09; Admin Dose 81 MG; Start 08/10/17 at 09:00 Acetaminophen (Tylenol Tab) 500 mg Q6H PRN PO PAIN AND OR ELEVATED TEMP Last administered on 08/10/17 09:12; Admin Dose 500 MG; Start 08/09/17 at 21:30 Lorazepam (Ativan) 0.5 mg Q6H PRN PO ANXIETY; Start 08/09/17 at 21:30 Metoprolol Tartrate (Lopressor) 12.5 mg BID PO Last administered on 08/10/17 09:09; Admin Dose 12.5 MG; Start 08/09/17 at 21:30 Amlodipine Besylate (Norvasc) 2.5 mg Q12 PO Last administered on 08/10/17 09: 09; Admin Dose 2.5 MG; Start 08/09/17 at 21:30 Enoxaparin Sodium (Lovenox) 95 mg Q24H SC Last administered on 08/09/17 21:49 ; Admin Dose 95 MG; Start 08/09/17 at 21:30 Brimonidine/ Timolol (Combigan Oph) 1 drop BID BOTH EYES Last administered on 08/10/17 09:10; Admin Dose 1 DROP; Start 08/09/17 at 22:30 Latanoprost (Xalatan) 1 drop HS BOTH EYES Last administered on 08/09/17 23:16 ; Admin Dose 1 DROP; Start 08/09/17 at 23:00 ANIVAL PEDRAZA MD Aug 10, 2017 20:19
[2017-08-10] MEDS: LATANOPROST 0.005% 2.5 ML OPH BOTH EYES SCH (20:37)
[2017-08-10 20:54] LABS: RETICULOCYTE COUNT % 1.4 % (0.5-1.5)
[2017-08-10] MEDS ORDERED: ATORVASTATIN 20 MG TAB PO SCH (21:00)
[2017-08-10 21:21] LABS: IRON 67 ug/dl (35-150)
[2017-08-10 21:31] LABS: TOTAL IRON BINDING CAPACITY 337 ug/dl (241-421)
[2017-08-10 21:52] LABS: THYROID STIMULATING HORMONE 1.87 MIU/L (0.465-4.680)
[2017-08-10 21:56] LABS: FERRITIN 23.1 ng/ml (11.1-264.0)
[2017-08-10] MEDS: ENOXAPARIN 100 MG/ML SYG SC SCH (22:25)
[2017-08-10 22:27] LABS: FOLATE 12.8 ng/ml (2.8-20.0)
[2017-08-11] VITALS (12 sets, daily range): BP systolic 92–141; BP diastolic 44–65; PULSE 59–82; RESP 19–20
[2017-08-11] MEDS: PANTOPRAZOLE (EC) 40 MG TAB PO SCH (06:07)
--- NOTE | 2017-08-11 07:34 | RADRPT ---
Echocardiogram Report Patient Name: ANABELA KRAUSE Gender: Female Date: 1935 Study Date: 10-Aug-2017 [employer] Analyst: Adele Greer [facility] Location: [id number] Ref. Physician: MYA RODRIGUEZ Quality: Adequate Procedures: Transthoracic echocardiogram with complete 2D, M-Mode, and doppler examination. Indications: Congestive Heart Failure. 2D/M Mode Doppler Measurement Value Normal Ranges Measurement Value Normal Ranges LVIDd 2D 3.5 3.5 - 5.6 cm RITCHIE Vmax 0.5 cm2 LVIDs 2D 2.1 2.1 - 4.1 cm RITCHIE VTI 0.5 cm2 LVPWd 2D 1.8 0.6 - 1.1 cm AV Mean [place] 4.7 m/sec IVSd 2D 1.7 0.6 - 1.1 cm AV Mean PG 101.8 mmHg AoR Diam 2D 2.8 2.0 - 3.7 cm AV Peak [place] 6.5 m/sec EDV 2D 50.3 cm3 AV Peak PG 170.8 mmHg ESV 2D 9.8 cm3 AV VTI 170.0 cm LA Dimen 2D 4.2 2.3 - 4.0 cm AI Peak PG 79.0 mmHg LVOT Diam 2.0 cm AI Peak [place] 4.4 m/sec AI PHT 365.9 msec LVOT Mean [place] 0.8 m/sec LVOT Mean PG 2.7 mmHg LVOT Peak [place] 1.1 m/sec LVOT Peak PG 5.0 mmHg LVOT VTI 32.4 cm MV E Peak [place] 1.7 m/sec MV A Peak [place] 1.1 m/sec MV E/A 1.5 MV Peak [place] 2.1 m/sec MV Peak PG 18.1 mmHg MV Mean [place] 1.2 m/sec MV Mean PG 6.7 mmHg MV Decel Time 225 msec MV Decel [place] 8 MV E/A 1.5 MV VTI 49.3 cm TR Peak [place] 3.9 m/sec TR Peak PG 59.7 mmHg RVSP 63.0 mmHg Findings Left Ventricle: Normal left ventricular systolic function. Normal left ventricular cavity size. Mild concentric left ventricular hypertrophy. Ejection fraction is visually estimated at 65 %. Right Ventricle: Normal right ventricular size. Normal right ventricular systolic function. Left Atrium: There is mild enlargement of left atrium. Right Atrium: The right atrium is normal in size. Mitral Valve: Moderate mitral leaflet calcification. Moderate mitral annular calcification. Mild mitral valve regurgitation. Aortic Valve: Critical aortic stenosis. Aortic valve Max velocity 6.53 m/sec. Max PG 170.80 mmHg. Mean PG 101.80 mmHg. Aortic valve area 0.60 cm2. Aortic cusps appear severely calcified. Mild aortic valve regurgitation. Tricuspid Valve: Normal appearance of the tricuspid valve. Estimated peak PA systolic pressure 63 mmHg. There is mild tricuspid regurgitation. Pulmonic Valve: Normal pulmonic valve appearance. Pericardium: Normal pericardium with no significant pericardial effusion. Aorta: Normal aortic root. IVC: Normal size and normal respiratory collapse consistent with normal right atrial pressure. Conclusions Normal left ventricular systolic function. Normal left ventricular cavity size. Mild concentric left ventricular hypertrophy. Ejection fraction is visually estimated at 65 %. Critical aortic stenosis. Aortic valve Max velocity 6.53 m/sec. Max PG 170.80 mmHg. Mean PG 101.80 mmHg. Aortic valve area 0.60 cm2. Aortic cusps appear severely calcified. Mild aortic valve regurgitation. Estimated peak PA systolic pressure 63 mmHg based on RA pressure of 3 mmHg. Electronically Signed By: Mya Rodriguez 11-Aug-2017 07:33:09 -0800 Patient Name: ANABELA KRAUSE Study Date: 10-Aug-2017 [id number]
--- NOTE | 2017-08-11 07:48 | CONS ---
Date/Time of Note Date/Time of Note DATE: 08/11/17 TIME: 07:44 Assessment/Plan Assessment/Plan Chief Complaint/Hosp Course Acute respiratory failure: Due to flash pulmonary edema in setting of severe . Now resolved after diuresis and off BiPAP. Euvolemic Acute diastolic/valvular heart failure: Episode appears to be more of a flash pulmonary edema than a subacute decompensation. Now euvolemic after diuresis Severe aortic stenosis: Very severe/critical by gradients. Spoke to pt about options including TAVR and she is currently not interested and is afraid. Also explained that the progression of her disease is worsening heart failure and . She wants to think about it and will us know. Acute vs chronic renal failure: unknown baseline Cr DM HTN -ok for d/c from my perspective -continue home lasix 40mg daily -continue ASA, lipitor -continue metoprolol Problems: Consultation Date/Type/Reason Admit Date/Time Aug 09, 2017 at 12:57 Initial Consult Date 08/10/17 Type of Consultation: Cardiology Referring Provider: DEWAYNE ADAIR MD 24 HR Interval Summary Free Text/Dictation Doing well. No further SOB. Exam/Review of Systems Vital Signs Vitals Vital Signs Date Time Temp Pulse Resp B/P Pulse Ox O2 Delivery O2 Flow Rate FiO2 08/11/17 04:09 62 08/11/17 04:00 98.5 19 101/58 97 08/11/17 00:50 2.0 08/09/17 20:00 Nasal Cannula 08/09/17 11:30 50 Intake and Output 08/10/17 08/10/17 08/11/17 15:00 23:00 07:00 Intake Total 480 ml 300 ml Balance 480 ml 300 ml Exam Constitutional: alert, oriented Psych: nl mood/affect, no complaints Head: atraumatic, normocephalic Neck: supple, No jvd Respiratory: clear to auscultation, No crackles/rales Cardiovascular: edema (trace), regular rate and rhythm, systolic murmur (3/6 WALT, 2/6 HSM) Gastrointestinal: non-tender, soft Neurological: nl mental status, nl speech Results Result Diagram: 08/09/17 1025 08/09/17 1025 Results 24 hrs Laboratory Tests Test 08/10/17 11:34 08/10/17 20:33 08/10/17 20:34 Troponin I 0.054 Erythrocyte Sedimentation Rate 22 Absolute Reticulocyte Count 0.045 Percent Reticulocyte Count 1.4 Uric Acid 11.0 H Ferritin 23.1 Lactate Dehydrogenase 538 Carcinoembryonic Antigen 1.0 Vitamin B12 Level 266 Folate 12.8 Thyroid Stimulating Hormone (TSH) 1.870 Iron Level 67 Total Iron Binding Capacity 337 Percent Iron Saturation 20 L Medications Medications Current Medications Pantoprazole (Protonix Tab) 40 mg DAILY@06 PO Last administered on 08/11/17 06:07; Admin Dose 40 MG; Start 08/10/17 at 06:00 Atorvastatin Calcium (Lipitor) 20 mg HS PO Last administered on 08/10/17 20: 34; Admin Dose 20 MG; Start 08/10/17 at 21:00 Aspirin (Halfprin) 81 mg DAILY PO Last administered on 08/10/17 09:09; Admin Dose 81 MG; Start 08/10/17 at 09:00 Acetaminophen (Tylenol Tab) 500 mg Q6H PRN PO PAIN AND OR ELEVATED TEMP Last administered on 08/10/17 09:12; Admin Dose 500 MG; Start 08/09/17 at 21:30 Lorazepam (Ativan) 0.5 mg Q6H PRN PO ANXIETY; Start 08/09/17 at 21:30 Metoprolol Tartrate (Lopressor) 12.5 mg BID PO Last administered on 08/10/17 09:09; Admin Dose 12.5 MG; Start 08/09/17 at 21:30 Amlodipine Besylate (Norvasc) 2.5 mg Q12 PO Last administered on 08/10/17 09: 09; Admin Dose 2.5 MG; Start 08/09/17 at 21:30 Enoxaparin Sodium (Lovenox) 95 mg Q24H SC Last administered on 08/10/17 22:25 ; Admin Dose 95 MG; Start 08/09/17 at 21:30 Brimonidine/ Timolol (Combigan Oph) 1 drop BID BOTH EYES Last administered on 08/10/17 20:34; Admin Dose 1 DROP; Start 08/09/17 at 22:30 Latanoprost (Xalatan) 1 drop HS BOTH EYES Last administered on 08/10/17 20:37 ; Admin Dose 1 DROP; Start 08/09/17 at 23:00 MYA RAMON Aug 11, 2017 07:48
--- NOTE | 2017-08-11 08:54 | RADRPT ---
PROCEDURE: XR Chest. CLINICAL INDICATION: Shortness of breath. TECHNIQUE: Single frontal view of the chest was obtained. COMPARISON: 08/09/2017. FINDINGS: The cardiomediastinal silhouette demonstrates enlargement of the cardiac silhouette. There are aorti c calcifications. No significant interval change in pulmonary edema. No pleural effusion is seen. No definite pneumothorax. No acute osseous abnormality. IMPRESSION: Cardiomegaly with no significant change in pulmonary edema. RPTAT: AAEE Ricardo Banegas Physician Date Time Electronically viewed and signed by Ricardo Banegas Physician on 08/11/2017 08:54 PH/
[2017-08-11] MEDS: AMLODIPINE 2.5 MG TAB PO SCH (09:00)
[2017-08-11] MEDS: METOPROLOL 25 MG TAB PO SCH (09:00)
[2017-08-11 09:15] LABS: BASOPHILS % 0.5 % (0.0-2.0); EOSINOPHILS # 0.2 10^3/ul (0.0-0.5); EOSINOPHILS % 3.5 % (0.0-7.0); HEMATOCRIT 28.4 % (37.0-47.0); HEMOGLOBIN 9.1 g/dl (12.0-16.0); LYMPHOCYTES % 23.3 % (15.0-51.0); MEAN CORPUSCULAR HEMOGLOBIN 27.4 pg (29.0-33.0); MEAN CORPUSCULAR VOLUME 85.5 fl (82.0-101.0); MONOCYTE # 0.4 10^3/ul (0.3-0.9); MONOCYTES % 8.3 % (0.0-11.0); NEUTROPHIL # 2.8 10^3/ul (1.6-7.5); NEUTROPHILS % 64.2 % (39.0-77.0); PLATELET COUNT 125 10^3/UL (140-415); RED BLOOD COUNT 3.32 10^6/ul (4.20-5.40); RED CELL DISTRIBUTION WIDTH 12.9 % (11.5-14.5); WHITE BLOOD COUNT 4.3 10^3/ul (4.8-10.8)
[2017-08-11] MEDS: BRIMONIDINE 0.2%-TIMOLOL 0.5% 5ML OPH BOTH EYES SCH (09:24)
[2017-08-11] MEDS: ASPIRIN (EC) 81 MG TAB PO SCH (09:24)
--- NOTE | 2017-08-11 09:27 | PDOCDIS ---
Discharge Instructions CONDITION Patient Condition: Fair HOME CARE INSTRUCTIONS: Diet Instructions: 2gm NaSpecial Diet: Cardiac diet ACTIVITY: Activity Restrictions: No Weight Bearing Bathing Restrictions: Shower REFERRALS Other Referrals [facility] for TAVR. in 2-3 days. in 5 days. SCHOOL/WORK RELEASE May return to School/Work on: Aug 11, 2017 May return to School/Work with: With Restrictions DEWAYNE ADAIR MD Aug 11, 2017 09:27
--- NOTE | 2017-08-11 09:32 | DS ---
Date/Time of Note Date/Time of Note DATE: 08/11/17 TIME: 09:29 Discharge Summary Admission/Discharge Info Admit Date/Time Aug 09, 2017 at 12:57 Discharge Date/Time 08/11/2017 12:pm Hx of Present Illness Severe sob with foamy sputum production. Progressive worsening of shortness of breath for the past 3 days. Today she was suffocating literally and her daughter in law called to son who called to paramedics.They placed her on CPAP. Her blood pressure was 150-160 mm hg systolic. She is ahving pressure sensation of the left breast area with pressure sensation to the neck area too. The symptoms come and go. The oxygen saturation was registered 70% according to er note. She had a HX of coronary disease, CHF , and hypertension. Hospital Course Edema resolved. BP better controlled. Refuses TAVR for now. Explained risks and benefits doing and not doing a TAVR. Family agreed. She will reconsider after going home. Home Meds Reported Medications Latanoprost (Latanoprost) 2.5 Ml Drops, 1 DROP BOTH EYES QHS, #1 BOTTLE 08/09/17 Lorazepam* (Lorazepam*) 0.5 Mg Tablet, 0.5 MG PO TID Y for ANXIETY, TAB 08/09/17 Sertraline Hcl* (Zoloft*) 50 Mg Tablet, 50 MG PO DAILY, #30 TAB 08/09/17 Hydrochlorothiazide* (Hydrochlorothiazide*) 25 Mg Tab, 25 MG PO DAILY, #30 TAB 08/09/17 Brimonidine/Timolol* (Combigan*) 5 Ml Drops, 1 DROP BOTH EYES BID, BOTTLE 08/09/17 Metoprolol Tartrate* (Lopressor*) 25 Mg Tab, 12.5 MG PO BID, #60 TAB 08/09/17 Furosemide* (Furosemide*) 40 Mg Tablet, 40 MG PO DAILY, TAB 08/09/17 Valsartan* (Diovan*) 80 Mg Tablet, 80 MG PO DAILY, TAB 08/09/17 Discontinued Reported Medications Metoprolol Succinate* (Toprol XL*) 25 Mg Tab.sr.24h, 25 MG PO DAILY, #30 TAB 08/09/17 Follow-up Plan To and pedrito prn and/or 3-5 days. Primary Care Provider Lisa Adair MD Time spent on discharge: > 30 minutes Pending Labs Laboratory Tests Test 08/10/17 11:34 08/10/17 20:33 08/10/17 20:34 08/11/17 07:59 Troponin I 0.054ng/ml (0.00-0.12) Erythrocyte Sedimentation Rate 22mm/Hr (0-30) Absolute Reticulocyte Count 0.045X10^6 (0.020-0.110) Percent Reticulocyte Count 1.4% (0.5-1.5) Uric Acid 11.0mg/dl (3.1-7.9) Ferritin 23.1ng/ml (11.1-264.0) Lactate Dehydrogenase 538IU/L (313-618) Carcinoembryonic Antigen 1.0ng/ml (0.0-5.0) Vitamin B12 Level 266pg/ml (239-931) Folate 12.8ng/ml (2.8-20.0) Thyroid Stimulating Hormone (TSH) 1.870MIU/L (0.465-4.680) Iron Level 67ug/dl (35-150) Total Iron Binding Capacity 337ug/dl (241-421) Percent Iron Saturation 20% SAT (22-52) White Blood Count 4.310^3/ul (4.8-10.8) Red Blood Count 3.3210^6/ul (4.20-5.40) Hemoglobin 9.1g/dl (12.0-16.0) Hematocrit 28.4% (37.0-47.0) Mean Corpuscular Volume 85.5fl (82.0-101.0) Mean Corpuscular Hemoglobin 27.4pg (29.0-33.0) Mean Corpuscular Hemoglobin Concent 32.0g/dl (32.0-37.0) Red Cell Distribution Width 12.9% (11.5-14.5) Platelet Count 81545^3/UL (140-415) Mean Platelet Volume 12.0fl (7.4-10.4) Neutrophils % 64.2% (39.0-77.0) Lymphocytes % 23.3% (15.0-51.0) Monocytes % 8.3% (0.0-11.0) Eosinophils % 3.5% (0.0-7.0) Basophils % 0.5% (0.0-2.0) Nucleated Red Blood Cells % 0.0/100WBC (0.0-0.0) Neutrophils # 2.810^3/ul (1.6-7.5) Lymphocytes # 1.010^3/ul (0.8-2.9) Monocytes # 0.410^3/ul (0.3-0.9) Eosinophils # 0.210^3/ul (0.0-0.5) Basophils # 0.010^3/ul (0.0-0.1) Nucleated Red Blood Cells # 0.010^3/ul (0.0-0.0) LISA ADAIR MD Aug 11, 2017 09:32
[2017-08-11 09:54] LABS: ALBUMIN 3.3 g/dl (3.3-4.9); ALBUMIN/GLOBULIN RATIO 1.06; BILIRUBIN,INDIRECT 0.5 mg/dl (0-1.1); BILIRUBIN,TOTAL 0.5 mg/dl (0.2-1.3); CALCIUM 8.5 mg/dl (8.4-10.2); CREATININE 1.67 mg/dl (0.44-1.00); POTASSIUM 4.2 mmol/L (3.5-5.1); TOTAL PROTEIN 6.4 g/dl (6.1-8.1)
[2017-08-12 16:17] LABS: ALBUMIN 3.4 g/dL (3.8-4.8)
== END 2017-08-11 16:37 | disposition home or self-care (01) | DRG 291 ==
LOC: E/R 09:53 → TEL 12:57 → UNDODISIN 18:50
PROVIDERS: ADMIT Family Medicine; ATTEND Family Medicine
DX: I13.0 Hypertensive heart and chronic kidney disease with heart failure and stage 1 through stage 4 chronic kidney disease, or unspecified chronic kidney disease (principal); I50.31 Acute diastolic (congestive) heart failure; J96.01 Acute respiratory failure with hypoxia; N17.9 Acute kidney failure, unspecified; I35.0 Nonrheumatic aortic (valve) stenosis; D63.8 Anemia in other chronic diseases classified elsewhere; N18.9 Chronic kidney disease, unspecified; I25.10 Atherosclerotic heart disease of native coronary artery without angina pectoris; G47.33 Obstructive sleep apnea (adult) (pediatric); M81.0 Age-related osteoporosis without current pathological fracture; R32 Unspecified urinary incontinence; G31.84 Mild cognitive impairment of uncertain or unknown etiology; F41.9 Anxiety disorder, unspecified; H40.9 Unspecified glaucoma; F32.9 Major depressive disorder, single episode, unspecified; K21.9 Gastro-esophageal reflux disease without esophagitis; E78.00 Pure hypercholesterolemia, unspecified
CPT/HCPCS: 36415; 71010; 80048; 80053; 80061; 82306; 82378; 82550; 82553; 82607; 82728; 82746; 83010; 83036; 83540; 83615; 83735; 84155; 84165; 84443; 84484; 84560; 85025; 85045; 85378; 85651; 93005; 93306; 93970; 94660; 96374; J1940; J1650